=== PATIENT | male | born 2000 | race African-American/Black ===

== ENCOUNTER 2022-05-27 12:55 | Emergency (ER) | payer MEDICAID ==
[2022-05-27] MEDS ORDERED: Ondansetron 4 MG Tab.DIS PO ONE ×2 (12:56→14:27)
[2022-05-27] MEDS ORDERED: Amoxicillin 500 MG Cap PO STA (13:49)
[2022-05-27] MEDS ORDERED: Amoxicillin/Clavulanate K 875-125 MG Tab PO STA (14:20)
== END 2022-05-27 14:38 | disposition home or self-care (01) ==
LOC: FB.ED 12:55
DX: J02.9 Acute pharyngitis, unspecified (principal); R11.2 Nausea with vomiting, unspecified
CPT/HCPCS: 87651; 99283; A9270; Q0162; 99281